=== PATIENT | female | born 1960 | race Two or more races ===

== ENCOUNTER 2019-07-23 17:04 | Emergency (ER) | payer OTHER ==
[~2019-07-23] VITALS: Ht 154.9 cm; Wt 72.6 kg
--- NOTE | 2019-07-23 17:36 | NUR ---
PT BIB SELF C/O SYNCOPAL EPISODE THIS AFTERNON, PT IS AAOX3, NOT IN RESPIRATORY DISTRESS, HOOKED TO MORTUARY TECHNICIAN, KEPT RESTED AND COMFORTABLE, WILL CONTINUE TO MONITOR.
--- NOTE | 2019-07-23 17:50 | NUR ---
BHUMIKA ADKINS AT BEDSIDE FOR EVAL.
--- NOTE | 2019-07-23 18:20 | NUR ---
URINE SPECIMEN COLLECTED AND SENT TO LAB.
--- NOTE | 2019-07-23 18:25 | NUR ---
IV LINE ESTABLISHED, BLOOD DRAWN AND SENT TO LAB.
[2019-07-23 18:36] LABS: BASOPHILS # (AUTO) 0.1 /CMM (0.0-0.2); BASOPHILS % (AUTO) 0.8 % (0.0-2.0); EOSINOPHILS % (AUTO) 0.4 % (0.0-6.0); HEMATOCRIT 41 % (33-45); HEMOGLOBIN 13.5 g/dL (11.5-14.8); LYMPHOCYTES # (AUTO) 3.9 /CMM (0.8-4.8); MEAN CORPUSCULAR HGB CONC 33 g/dl (31.0-36.0); MEAN CORPUSCULAR VOLUME 98 fL (82-100); MONOCYTES # (AUTO) 0.5 /CMM (0.1-1.30); MONOCYTES % (AUTO) 3.9 % (2.0-12.0); NEUTROPHILS % (AUTO) 63.9 % (43.0-81.0); PLATELET COUNT (AUTO) 256 /CMM (150-450); RED BLOOD CELL COUNT(AUTO) 4.12 MIL/uL (4.0-5.2); WHITE BLOOD COUNT (AUTO) 12.5 K/uL (4.3-11.0)
[2019-07-23 18:44] LABS: APPEARANCE,URINE Clear (CLEAR); BILIRUBIN,URINE Negative (NEGATIVE); BLOOD, URINE Negative Ery/uL (NEGATIVE); COLOR,URINE Yellow (YELLOW); KETONES,URINE Negative (NEGATIVE); LEUKOCYTE ESTERASE ,URINE Negative (NEGATIVE); NITRITE, URINE Negative (NEGATIVE); PH,URINE 5.5 (5.0-8.0); PROTEIN,URINE Negative (NEGATIVE); UGLUCOSE Negative (NEGATIVE)
[2019-07-23 18:52] LABS: CALCIUM, SERUM 9.6 mg/dL (8.5-10.1); CARBON DIOXIDE 29 mmol/L (21-32); CHLORIDE 102 mmol/L (98-107); CREATININE 0.6 mg/dL (0.6-1.3); GLUCOSE 200 mg/dL (74-106); POTASSIUM 3.3 mmol/L (3.5-5.1); SODIUM SERUM 140 mmol/L (136-145); UREA NITROGEN, BLOOD 9 mg/dL (7-18)
[2019-07-23 18:54] LABS: BACTERIA,URINE 2+ /HPF (None Seen); MUCUS,URINE Moderate /LPF (None Seen); SQUAMOUS EPITHELIAL CELL,UR Moderate /HPF (None Seen); URINE AMORPHOUS URATE Moderate /HPF (None Seen)
[2019-07-23] MEDS ORDERED: IV NS 0.9% 1,000 ML BAG IV ONE (19:00)
--- NOTE | 2019-07-23 19:13 | NUR ---
REPORT GIVEN TO ANKITA AYOUB FOR JARRED.
--- NOTE | 2019-07-23 19:33 | NUR ---
IV removed. Catheter intact and site benign. Pressure and 4x4 applied to site. No bleeding noted. Patient discharged to home in stable condition. Written and verbal after care instructions given. Patient verbalizes understanding of instruction.
[2019-07-23 20:17] VITALS: BP 139/78
== END 2019-07-23 19:38 | disposition home or self-care (01) ==
LOC: ER 17:04
DX: R55 Syncope and collapse (principal); N39.0 Urinary tract infection, site not specified; E11.65 Type 2 diabetes mellitus with hyperglycemia; E78.5 Hyperlipidemia, unspecified; I10 Essential (primary) hypertension
CPT/HCPCS: 36415; 71045; 80048; 81001; 84484; 84703; 85025; 93005; 96360; 99285; J7030; 81000-TC; 87086-TC

== ENCOUNTER 2020-05-10 00:47 | Inpatient (IN) | payer OTHER ==
[~2020-05-10] VITALS: Ht 157.5 cm; Wt 74.8 kg
--- NOTE | 2020-05-10 01:42 | NUR ---
PT AAOX4. BIBSELF C/O SOB X3 DAYS. PT PLACED IN BED 18 ON MONITOR AND PULSE OX. TEMP 100.0. PT SAT 95% ON ROOM AIR. PT PLACED IN GOWN, ON MONITOR AND PULSE OX. MD AT BEDSIDE FOR EVAL. AWAITING ORDERS.
--- NOTE | 2020-05-10 01:43 | NUR ---
CALLED LAB REGARDING COVID PCR AND INF.
[2020-05-10] MEDS ORDERED: ACETAMINOPHEN ES 500 MG TABLET ONE (01:45)
[2020-05-10] MEDS ORDERED: ACETAMINOPHEN 650 MG/SUPP.RECT RC ONE (02:00)
[2020-05-10] MEDS ORDERED: ACETAMINOPHEN ES 500 MG TABLET PO ONE (02:00)
--- NOTE | 2020-05-10 02:04 | NUR ---
CALLED LAB REGARDING ANTIGEN.
--- NOTE | 2020-05-10 02:04 | NUR ---
EMT AT BEDSIDE FOR EKG.
[2020-05-10 02:10] LABS: BASOPHILS % (AUTO) 0.3 % (0.0-2.0); EOSINOPHILS % (AUTO) 0.3 % (0.0-6.0); HEMATOCRIT 36 % (33-45); HEMOGLOBIN 12.2 g/dL (11.5-14.8); LYMPHOCYTES # (AUTO) 1.8 /CMM (0.8-4.8); LYMPHOCYTES % (AUTO) 20.7 % (20.0-44.0); MEAN CORPUSCULAR HGB CONC 34 g/dl (31.0-36.0); MEAN CORPUSCULAR VOLUME 93 fL (82-100); MONOCYTES # (AUTO) 0.8 /CMM (0.1-1.30); MONOCYTES % (AUTO) 8.7 % (2.0-12.0); NEUTROPHILS # (AUTO) 6.2 /CMM (1.8-8.9); PLATELET COUNT (AUTO) 280 /CMM (150-450); RED BLOOD CELL COUNT(AUTO) 3.89 MIL/uL (4.0-5.2); WHITE BLOOD COUNT (AUTO) 8.8 K/uL (4.3-11.0)
[2020-05-10 02:23] LABS: CALCIUM, SERUM 8.3 mg/dL (8.5-10.1); CARBON DIOXIDE 27 mmol/L (21-32); CHLORIDE 87 mmol/L (98-107); CREATININE 0.7 mg/dL (0.6-1.3); GLUCOSE 120 mg/dL (74-106); POTASSIUM 2.9 mmol/L (3.5-5.1); SODIUM SERUM 125 mmol/L (136-145); UREA NITROGEN, BLOOD 8 mg/dL (7-18)
[2020-05-10 02:28] LABS: D-DIMER 1.64 mg/L(FEU (0.17-0.50)
--- NOTE | 2020-05-10 02:28 | NUR ---
TONIID SWABBED, SENT TO LAB.
--- NOTE | 2020-05-10 02:28 | NUR ---
URINE COLLECTED, SENT TO LAB.
[2020-05-10] MEDS ORDERED: POTASSIUM CHLORIDE 20 MEQ TAB.PRT.SR PO ONE ×2 (02:30→02:41)
[2020-05-10 02:35] LABS: ALANINE AMINOTRANSFERASE 62 U/L (12-78); ALBUMIN 2.3 g/dL (3.4-5.0); ALKALINE PHOSPHATASE 94 U/L (46-116); ASPARTATE AMINOTRANSFERASE 52 U/L (15-37); B-TYPE NATRIURETIC PEPTIDE 640 PG/ML (0-125); BILIRUBIN,TOTAL 0.8 mg/dL (0.2-1.0); CREATINE KINASE, TOTAL 257 U/L (26-192); FERRITIN 346 ng/mL (8-388); TOTAL PROTEIN, SERUM 7.6 g/dL (6.4-8.2)
[2020-05-10 02:37] LABS: C-REACTIVE PROTEIN 10.6 mg/dL (0.0-0.9)
[2020-05-10 02:44] LABS: BILIRUBIN,URINE NEGATIVE (NEGATIVE); BLOOD, URINE TRACE Ery/uL (NEGATIVE); COLOR,URINE YELLOW (YELLOW); LEUKOCYTE ESTERASE ,URINE NEGATIVE (NEGATIVE); NITRITE, URINE NEGATIVE (NEGATIVE); PROTEIN,URINE NEGATIVE (NEGATIVE); UGLUCOSE NEGATIVE (NEGATIVE); UROBILINOGEN,URINE 0.2 EU/dL (0.2)
[2020-05-10 02:46] LABS: BACTERIA,URINE None seen /HPF (None Seen); RBC,URINE 0-2 /HPF (0-2); SQUAMOUS EPITHELIAL CELL,UR Few /HPF (None Seen); WBC,URINE 0-2 /HPF (0-3)
--- NOTE | 2020-05-10 02:46 | NUR ---
RADIOLOGY AT BEDSIDE FOR CXR
--- NOTE | 2020-05-10 02:50 | NUR ---
REC'D POS COVID RESULTS. AWARE
[2020-05-10] MEDS ORDERED: ONDANSETRON HCL/PF 4 MG/2 ML VIAL IVP PRN (05:00)
[2020-05-10] MEDS ORDERED: ACETAMINOPHEN 325 MG TABLET PO PRN (05:00)
[2020-05-10] MEDS ORDERED: ALBUTEROL SULFATE 8 GM HFA.AER.AD IH PRN (05:00)
[2020-05-10] MEDS ORDERED: ONDANSETRON 4 MG TAB.RAPDIS SL PRN (05:00)
[2020-05-10 05:53] LABS: BILIRUBIN,DIRECT 0.4 mg/dL (0.0-0.2)
--- NOTE | 2020-05-10 07:26 | NUR ---
REPORT GIVEN TO SAMMY LUCIANO FOR JARRED
[2020-05-10] MEDS ORDERED: ATOR40TA PO (07:49)
[2020-05-10] MEDS ORDERED: METF-442 PO (07:49)
[2020-05-10] MEDS ORDERED: ATEN100T PO (07:49)
[2020-05-10] MEDS ORDERED: HYDR25TA4 PO (07:49)
[2020-05-10] MEDS ORDERED: INSU100I26 PO (07:49)
[2020-05-10] MEDS ORDERED: BENA40TA8 PO (07:49)
[2020-05-10] MEDS ORDERED: INSU100V SQ (07:49)
[2020-05-10] MEDS ORDERED: INSU100V27 SQ (07:49)
[2020-05-10] MEDS ORDERED: ASPI-1420 PO (07:49)
[2020-05-10] MEDS ORDERED: Sodium Phosphate 30 MMOL in IV NS 0.9% 250 ML IV SCH (08:00)
[2020-05-10] MEDS: DEXAMETHASONE SOD PHOSPHATE 10 MG/ML VIAL IJ SCH (09:01)
[2020-05-10] MEDS: AZITHROMYCIN 250 MG TABLET PO SCH (09:01)
[2020-05-10] MEDS: ENOXAPARIN SODIUM 40 MG/0.4 ML DISP.SYRIN SQ SCH (09:18)
--- NOTE | 2020-05-10 09:22 | NUR ---
PATIENT IN BED ASLEEP, EASILY AROUSABLE BY VOICE. HOOKED TO MONITOR. VSS
--- NOTE | 2020-05-10 09:42 | NUR ---
BS 65MG/DL. MD AWARE
[2020-05-10] MEDS: ASPIRIN EC 81 MG TABLET.DR PO SCH (10:00)
[2020-05-10] MEDS: ATENOLOL 50 MG TABLET PO SCH (10:16)
[2020-05-10] MEDS: BENAZEPRIL HCL 20 MG TABLET PO SCH (10:17)
[2020-05-10] MEDS ORDERED: DEXTROSE 50%-WATER 50 ML DISP.SYRIN IV PRN (10:30)
[2020-05-10] MEDS: METFORMIN 500 MG TABLET PO SCH ×2 (10:30→18:00)
--- NOTE | 2020-05-10 11:16 | NUR ---
PATIENT IN BED ASLEEP, EASILY AROUSABLE BY VOICE. HOOKED TO MONITOR. VSS
[2020-05-10] MEDS: BLOOD SUGAR DIAGNOSTIC 1 EACH STRIP VI SCH ×3 (12:30→21:36)
--- NOTE | 2020-05-10 13:22 | NUR ---
PATIENT IN BED ASLEEP, EASILY AROUSABLE BY VOICE. HOOKED TO MONITOR. VSS
--- NOTE | 2020-05-10 15:42 | NUR ---
PATIENT AWAKE IN BED. HOOKED TO MONITOR. VSS. KEPT ISOLATED. KEPT WARM SAFE AND COMFORTABLE
[2020-05-10] MEDS ORDERED: INSULIN LISPRO SQ SCH (17:00)
--- NOTE | 2020-05-10 17:18 | NUR ---
room 209-1
[2020-05-10] MEDS: INSULIN LISPRO/ASPART 100 UNIT/ML CARTRIDGE SQ SCH (17:30)
[2020-05-10] MEDS: INSULIN REGULAR, HUMAN 100 UNIT/ML 3 ML VIAL SQ PRN (17:30)
--- NOTE | 2020-05-10 18:22 | NUR ---
PATIENT AWAKE IN BED. HOOKED TO MONITOR. VSS. KEPT ISOLATED. KEPT WARM SAFE AND COMFORTABLE
--- NOTE | 2020-05-10 18:54 | NUR ---
PER CHARGE NURSE, VALUE ENGINEER WILL TAKE PATIENT.
--- NOTE | 2020-05-10 19:32 | NUR ---
REPORT GIVEN TO PHILIP LUCIANO FOR JARRED
--- NOTE | 2020-05-10 19:33 | NUR ---
CHAIR AND COUCH MAKER NOTES RECEIVED REPORT FROM ANKITA LATHAM; AWAITING FOR PATIENT TO ARRIVE TO UNIT
--- NOTE | 2020-05-10 19:57 | NUR ---
TAKEN UP TO ASSIGNED ROOM FOR JARRED.
[2020-05-10 20:00] VITALS: BP 113/76
--- NOTE | 2020-05-10 20:00 | NUR ---
SMALL CRAFT OPERATOR NOTES PATIENT ARRIVED TO UNIT VIA GURNEY, ACCOMPANIED BY 2 ER STAFF; PATIENT A/OX4, WOLOF SPEAKING; TELE MONITOR ATTACHED, READS SINUS RHYTHM; ISOLATION PRECAUTIONS IMPLEMENTED; PATIENT ABLE TO MAKE NEEDS KNOWN; BREATHING EVENLY AND UNLABORED; NO SOB NOTED; TOLERATING ROOM AIR WELL; NO APPARENT DISTRESS NOTED AT THIS TIME; PATIENT DENIES PAIN; PATIENT HAS LIMITED RUSSIAN, OKAY TO CALL FAMILY; L AC # 20, INTACT AND PATENT; BELONGINGS CHECKED; PATIENT ORIENTED TO UNIT AND STAFF; PATIENT VERBALIZED UNDERSTANDING; SAFETY PRECAUTIONS IMPLEMENTED; BED LOCKED IN LOW POSITION; SIDE RAILSX2; CALL LIGHT WITHIN REACH; WILL CON PLAN OF CARE
--- NOTE | 2020-05-10 20:09 | NUR ---
PT TRANSFERED PER [employer]S PROTOCOL
[2020-05-10] MEDS: *INSULIN REGULAR(HUMULIN R)HUM 100 UNIT/ML VIAL SQ PRN (21:37)
[2020-05-10] MEDS: INSULIN GLARGINE, 100 UNIT/ML CARTRIDGE SQ SCH (21:37)
--- NOTE | 2020-05-10 21:42 | NUR ---
MEDICAL RECORD LIBRARIAN NOTES PER PATIENT, SHE WOULD LIKE TO RECEIVE JUST THE 4 UNITS OF INSULIN COVERAGE AND DOES NOT WANT 38UNITS OF LANTUS TO BE ADMINISTERED; PATIENT REPORTED SHE DOES NOT WANT LOW BLOOD SUGAR AND IS ANXIOUS SINCE PATIENT DOES NOT HAVE MUCH APPETITE RECENTLY; RISKS/BENEFITS REVIEWED WITH PATIENT; PATIENT STILL REFUSED, WILL CONT PLAN OF CARE
[2020-05-11] VITALS: BP 126/70
--- NOTE | 2020-05-11 03:38 | NUR ---
NUT PROCESSING SUPERVISOR NOTES PATIENT REPORTED SHE FEELS LIKE SHE IS HAVING TROUBLE BREATHING; PATIENT PLACED ON O2 FOR NOW, PATIENT SATTING 94%, PATIENT FEELS MORE COMFORTABLY SLEEPING WITH O2 ON, WILL CONT PLAN OF CARE
[2020-05-11 04:00] VITALS: BP_SYST 118; BP_SYST 157; BP_DIAS 68; BP_DIAS 82
[2020-05-11] MEDS ORDERED: AZITHROMYCIN 250 MG TABLET PO SCH (05:00)
[2020-05-11] MEDS: BLOOD SUGAR DIAGNOSTIC 1 EACH STRIP VI SCH ×4 (06:51→21:00)
[2020-05-11] MEDS: INSULIN REGULAR, HUMAN 100 UNIT/ML 3 ML VIAL SQ PRN (06:54)
--- NOTE | 2020-05-11 07:04 | NUR ---
MILL TENDER WARM UP CLOSING NOTES PATIENT RESTING IN BED COMFORTABLY; A/OX4, BULGARIAN SPEAKING; PATIENT ON 2LPM VIA NC WELL, SATTING 94%; TELE MONITOR READS SINUS RHYTHM 60S; L AC #20, INTACT AND PATENT; ABLE TO MAKE NEEDS KNOWN; ISOLATION PRECAUTIONS MAINTAINED; SAFETY PRECAUTIONS IMPLEMENTED; WILL ENDORSE JARRED TO ONCOMING SHIFT
[2020-05-11] MEDS: INSULIN LISPRO/ASPART 100 UNIT/ML CARTRIDGE SQ SCH ×2 (07:30→17:16)
[2020-05-11 08:00] VITALS: BP 119/72
--- NOTE | 2020-05-11 08:00 | NUR ---
Spoke with [employer] who said NovoLog is not valuable. patient takes metformin this morning.
--- NOTE | 2020-05-11 08:00 | NUR ---
RN Opening note Received patient in bed AO x 4 able to responds all stimuli, does no c/o pain or discomfort. Skin is warm to touch keep clean/dry, intact IV sit. Respiratory even and unlabored with oxygen at 2LPM via n/c, no sob or distress observed. Kept bed locked with elevated HOB for ensure airway and aspiration precaution also lowest bed position for safety. Call light within reach will continue to monitor.
[2020-05-11 08:23] LABS: EOSINOPHILS % (AUTO) 0.1 % (0.0-6.0); HEMATOCRIT 34 % (33-45); HEMOGLOBIN 11.6 g/dL (11.5-14.8); LYMPHOCYTES # (AUTO) 1.6 /CMM (0.8-4.8); MEAN CORPUSCULAR HGB CONC 34 g/dl (31.0-36.0); MEAN CORPUSCULAR VOLUME 94 fL (82-100); MONOCYTES # (AUTO) 0.7 /CMM (0.1-1.30); MONOCYTES % (AUTO) 8.5 % (2.0-12.0); NEUTROPHILS # (AUTO) 6.3 /CMM (1.8-8.9); NEUTROPHILS % (AUTO) 72.4 % (43.0-81.0); PLATELET COUNT (AUTO) 317 /CMM (150-450); RED BLOOD CELL COUNT(AUTO) 3.64 MIL/uL (4.0-5.2); WHITE BLOOD COUNT (AUTO) 8.7 K/uL (4.3-11.0)
[2020-05-11 08:41] LABS: BILIRUBIN,TOTAL 0.6 mg/dL (0.2-1.0); CALCIUM, SERUM 8.3 mg/dL (8.5-10.1); CREATININE 0.6 mg/dL (0.6-1.3); MAGNESIUM 1.4 mg/dL (1.8-2.4); PHOSPHORUS 3.2 mg/dL (2.5-4.9); POTASSIUM 3.2 mmol/L (3.5-5.1); TOTAL PROTEIN, SERUM 7.1 g/dL (6.4-8.2)
[2020-05-11 08:47] LABS: THYROID STIMULATING HORMONE 0.508 uIU/mL (0.358-3.74)
[2020-05-11] MEDS: ATENOLOL 50 MG TABLET PO SCH (09:00)
[2020-05-11] MEDS: ASPIRIN EC 81 MG TABLET.DR PO SCH (09:46)
[2020-05-11] MEDS: AZITHROMYCIN 250 MG TABLET PO SCH (09:46)
[2020-05-11] MEDS: METFORMIN 500 MG TABLET PO SCH ×2 (09:47→17:14)
[2020-05-11] MEDS: ATORVASTATIN 40 MG TABLET PO SCH (09:47)
[2020-05-11] MEDS: BENAZEPRIL HCL 20 MG TABLET PO SCH (09:47)
[2020-05-11] MEDS: DEXAMETHASONE SOD PHOSPHATE 10 MG/ML VIAL IJ SCH (09:49)
[2020-05-11] MEDS: ENOXAPARIN SODIUM 40 MG/0.4 ML DISP.SYRIN SQ SCH (10:02)
[2020-05-11] MEDS ORDERED: POTASSIUM CHLORIDE 20 MEQ TAB.PRT.SR PO SCH (11:30)
[2020-05-11] MEDS: Magnesium 1GM/D5W 100ML PREMIX 100 ML IV SCH ×4 (12:17→15:59)
[2020-05-11] MEDS: *INSULIN REGULAR(HUMULIN R)HUM 100 UNIT/ML VIAL SQ PRN ×2 (12:20→21:04)
[2020-05-11 12:44] LABS: URIC ACID 2.8 mg/dL (2.6-7.2)
[2020-05-11 12:48] LABS: C-REACTIVE PROTEIN 13.9 mg/dL (0.0-0.9)
--- NOTE | 2020-05-11 18:00 | NUR ---
RN Closing note Patient in bed finished dinner, does no appears pain or distress. Skin is warm to touch intact IV site, no fever observed during day shift. Respiratory even and unlabored with oxygen/room air. Kept locked bed with elevated HOB for ensure airway and aspiration precaution also lowest position for safety, call light within reach, will endorse manager shift.
[2020-05-11] MEDS: CEFTRIAXONE 1 G in IV D5W 50 ML IV SCH (20:23)
[2020-05-11] MEDS: INSULIN GLARGINE, 100 UNIT/ML CARTRIDGE SQ SCH (21:05)
--- NOTE | 2020-05-11 21:11 | NUR ---
madiha insulin missing in tray spoke with patient states, "thats ok i continue my pen when i go home." bs 219 administered 4 units of regular insulin and gave snack.
--- NOTE | 2020-05-11 22:31 | NUR ---
NOTIFIED OF COVID RESULTS, PT IS POSITIVE FOR COVID. NOTIFIED PRIMARY RN MARBELLA
[2020-05-12] VITALS: BP 114/69
[2020-05-12 04:00] VITALS: BP 115/70
[2020-05-12] MEDS: INSULIN LISPRO/ASPART 100 UNIT/ML CARTRIDGE SQ SCH ×2 (07:19→17:35)
[2020-05-12] MEDS: *INSULIN REGULAR(HUMULIN R)HUM 100 UNIT/ML VIAL SQ PRN (07:20)
[2020-05-12] MEDS: BLOOD SUGAR DIAGNOSTIC 1 EACH STRIP VI SCH ×3 (07:20→17:35)
--- NOTE | 2020-05-12 07:20 | NUR ---
ms rn received on bed, awake,alert,oriented x4,on o2 2 liters, w/ adequate saturation, denies pain at this time,will monitor patient.
[2020-05-12 07:48] LABS: BASOPHILS % (AUTO) 0.3 % (0.0-2.0); EOSINOPHILS % (AUTO) 0.6 % (0.0-6.0); HEMATOCRIT 34 % (33-45); HEMOGLOBIN 11.4 g/dL (11.5-14.8); LYMPHOCYTES # (AUTO) 1.9 /CMM (0.8-4.8); MEAN CORPUSCULAR HGB CONC 33 g/dl (31.0-36.0); MEAN CORPUSCULAR VOLUME 95 fL (82-100); MONOCYTES # (AUTO) 0.6 /CMM (0.1-1.30); MONOCYTES % (AUTO) 6.4 % (2.0-12.0); NEUTROPHILS # (AUTO) 7.5 /CMM (1.8-8.9); NEUTROPHILS % (AUTO) 73.7 % (43.0-81.0); PLATELET COUNT (AUTO) 376 /CMM (150-450); RED BLOOD CELL COUNT(AUTO) 3.61 MIL/uL (4.0-5.2); WHITE BLOOD COUNT (AUTO) 10.1 K/uL (4.3-11.0)
[2020-05-12 07:57] LABS: CALCIUM, SERUM 8.5 mg/dL (8.5-10.1); CREATININE 0.6 mg/dL (0.6-1.3)
[2020-05-12 08:00] VITALS: BP 136/71
[2020-05-12] MEDS: ATENOLOL 50 MG TABLET PO SCH (09:00)
--- NOTE | 2020-05-12 09:20 | NUR ---
ms vinicio claros served,due meds given, tolerated well.
[2020-05-12] MEDS: DEXAMETHASONE SOD PHOSPHATE 10 MG/ML VIAL IJ SCH (10:27)
[2020-05-12] MEDS: ATORVASTATIN 40 MG TABLET PO SCH (10:27)
[2020-05-12] MEDS: METFORMIN 500 MG TABLET PO SCH ×2 (10:28→17:35)
[2020-05-12] MEDS: ASPIRIN EC 81 MG TABLET.DR PO SCH (10:28)
[2020-05-12] MEDS: BENAZEPRIL HCL 20 MG TABLET PO SCH (10:28)
[2020-05-12] MEDS: ENOXAPARIN SODIUM 40 MG/0.4 ML DISP.SYRIN SQ SCH (10:29)
--- NOTE | 2020-05-12 11:00 | NUR ---
ms rn was seen by dr. bolivar falcon/ orders made and carried out.
--- NOTE | 2020-05-12 11:00 | NUR ---
ms rn patient's saturation is below 88% ,room air at resrt
--- NOTE | 2020-05-12 11:00 | NUR ---
ms rn tried to tartrate patient from o2, still desaturating below 88% on room air,md aware.
[2020-05-12] MEDS: INSULIN REGULAR, HUMAN 100 UNIT/ML 3 ML VIAL SQ PRN (13:03)
[2020-05-12] MEDS ORDERED: METH4TAB3 PO (13:10)
[2020-05-12] MEDS ORDERED: AZIT250T13 PO (13:10)
[2020-05-12 16:00] VITALS: BP 133/71
--- NOTE | 2020-05-12 18:53 | NUR ---
ms rn ready to be discharge if o2 already delivered at home.
[2020-05-12 20:00] VITALS: BP_SYST 130; BP_SYST 134; BP_DIAS 65; BP_DIAS 69
--- NOTE | 2020-05-12 20:00 | NUR ---
received pt in the bed in stable condition.
[2020-05-12] MEDS: CEFTRIAXONE 1 G in IV D5W 50 ML IV SCH (20:39)
--- NOTE | 2020-05-12 20:50 | NUR ---
recephin not given because pt discharged home.
--- NOTE | 2020-05-12 21:12 | NUR ---
pt discharged home at 2051. iv removed no sign of bleeding. pt accompanied outside of the building via wheelchair.
== END 2020-05-12 21:00 | disposition home or self-care (01) | DRG 137 ==
LOC: ER 00:50 → OBSVTOIN 05:35 → OBSER 05:35 → TRANSITION 07:19 → TELE-TD 17:47 → TELE2 18:41
PROVIDERS: ADMIT Internal Medicine; ATTEND Internal Medicine
DX: U07.1 COVID-19 (principal); J96.01 Acute respiratory failure with hypoxia; I10 Essential (primary) hypertension; J12.89 Other viral pneumonia; E66.01 Morbid (severe) obesity due to excess calories; E43 Unspecified severe protein-calorie malnutrition; E11.9 Type 2 diabetes mellitus without complications; E87.6 Hypokalemia; E78.5 Hyperlipidemia, unspecified; E86.1 Hypovolemia; E87.2 Acidosis; Z79.4 Long term (current) use of insulin; E88.09 Other disorders of plasma-protein metabolism, not elsewhere classified; Z68.30 Body mass index [BMI] 30.0-30.9, adult; E22.2 Syndrome of inappropriate secretion of antidiuretic hormone
CPT/HCPCS: 36415; 71045-TC; 80048-TC; 80053-TC; 80061-TC; 81001; 82248-TC; 82550-TC; 82553; 82728-TC; 82962-TC; 83605-TC; 83615-TC; 83735-TC; 83880; 84100-TC; 84443-TC; 84484-TC; 84550-TC; 85025-TC; 85378-TC; 85385-TC; 85730-TC; 86140-TC; 87040-TC; 87081-TC; 87086-TC; A9563; C9803; G0378; J0696; J1100; J1650; J1815; J2405; J3475; J7050; J7060; Q0162; U0003

== ENCOUNTER 2020-05-17 22:12 | Inpatient (IN) | payer OTHER ==
[~2020-05-17] VITALS: Ht 157.5 cm; Wt 74.8 kg
[~2020-05-17 22:12] MED LIST: ASPI-1420 PO; ATEN100T PO; ATOR40TA PO; AZIT250T13 PO; BENA40TA8 PO; HYDR25TA4 PO; INSU100I26 PO; INSU100V SQ; INSU100V27 SQ; METF-442 PO; METH4TAB3 PO
--- NOTE | 2020-05-17 22:47 | NUR ---
PT BIBFAMILY C/O SOB. RECENTLY TEST POS COVID 05/10/20. MD AT BEDSIDE FOR EVAL. AWAITING ORDERS. NO ACUTE DISTRESS NOTED. PER FAMILY PT ON 2L NC AT HOME.
--- NOTE | 2020-05-17 22:49 | NUR ---
LINE ESTABLISHED RAC 20G, BLOOD WORK SENT TO LAB.
[2020-05-17 23:08] LABS: BASOPHILS # (AUTO) 0.3 /CMM (0.0-0.2); BASOPHILS % (AUTO) 2.4 % (0.0-2.0); EOSINOPHILS % (AUTO) 0.1 % (0.0-6.0); HEMATOCRIT 36 % (33-45); HEMOGLOBIN 12.1 g/dL (11.5-14.8); LYMPHOCYTES # (AUTO) 1.8 /CMM (0.8-4.8); LYMPHOCYTES % (AUTO) 17.1 % (20.0-44.0); MEAN CORPUSCULAR HGB CONC 34 g/dl (31.0-36.0); MEAN CORPUSCULAR VOLUME 94 fL (82-100); MONOCYTES # (AUTO) 0.6 /CMM (0.1-1.30); MONOCYTES % (AUTO) 5.2 % (2.0-12.0); NEUTROPHILS # (AUTO) 8.1 /CMM (1.8-8.9); NEUTROPHILS % (AUTO) 75.2 % (43.0-81.0); PLATELET COUNT (AUTO) 452 /CMM (150-450); RED BLOOD CELL COUNT(AUTO) 3.78 MIL/uL (4.0-5.2); WHITE BLOOD COUNT (AUTO) 10.8 K/uL (4.3-11.0)
--- NOTE | 2020-05-17 23:08 | NUR ---
RADIOLOGY AT BEDSIDE
[2020-05-17] MEDS ORDERED: IV NS 0.9% 1,000 ML BAG IV ONE (23:30)
[2020-05-17 23:34] LABS: ALANINE AMINOTRANSFERASE 152 U/L (12-78); ALBUMIN 2.5 g/dL (3.4-5.0); ALKALINE PHOSPHATASE 113 U/L (46-116); ASPARTATE AMINOTRANSFERASE 80 U/L (15-37); B-TYPE NATRIURETIC PEPTIDE 426 PG/ML (0-125); BILIRUBIN,TOTAL 0.4 mg/dL (0.2-1.0); CARBON DIOXIDE 22 mmol/L (21-32); CHLORIDE 82 mmol/L (98-107); CREATININE 0.6 mg/dL (0.6-1.3); GLUCOSE 147 mg/dL (74-106); POTASSIUM 4.3 mmol/L (3.5-5.1); TOTAL PROTEIN, SERUM 7.5 g/dL (6.4-8.2); UREA NITROGEN, BLOOD 7 mg/dL (7-18)
[2020-05-17 23:38] LABS: SODIUM SERUM 114 mmol/L (136-145)
--- NOTE | 2020-05-17 23:48 | NUR ---
[phone] [place] [id number] [phone] [place]
--- NOTE | 2020-05-17 23:58 | NUR ---
CALLED FOR PCR
[2020-05-17] MEDS ORDERED: PIPERACILLIN /TAZOBACTAM 3.375 G VIAL IV ONE (23:59)
[2020-05-18] MEDS ORDERED: PIPERACILLIN /TAZOBACTAM 3.375 G in IV D5W 50 ML IV ONE ×2
[2020-05-18] MEDS ORDERED: IV NS 0.9% 1,000 ML BAG IV ONE
--- NOTE | 2020-05-18 00:10 | NUR ---
COVID PCR SWABBED, SENT TO LAB.
--- NOTE | 2020-05-18 01:29 | NUR ---
DR. BARRIOS PAGED PER ER ORDER.
--- NOTE | 2020-05-18 01:32 | NUR ---
PT NOTED SINUS VAISHNAVI AT 48. PT ASSESSED, DID NOT HAVE ANY COMPLAINTS (DENIES CP/SOB). MD AWARE. WILL CONTINUE TO MONITOR.
[2020-05-18 02:10] LABS: BILIRUBIN,DIRECT 0.2 mg/dL (0.0-0.2)
[2020-05-18] MEDS ORDERED: MAG HYDROX/AL HYDROX/SIMETH 30 ML UDC PO PRN (02:30)
[2020-05-18] MEDS ORDERED: ZOLPIDEM TARTRATE 5 MG TABLET PO PRN (02:30)
[2020-05-18] MEDS ORDERED: HYDROCODONE/APAP 5/325MG TABLET PO PRN (02:30)
[2020-05-18] MEDS ORDERED: ONDANSETRON HCL/PF 4 MG/2 ML VIAL IVP PRN (02:30)
[2020-05-18] MEDS ORDERED: ACETAMINOPHEN 325 MG TABLET PO PRN (02:30)
[2020-05-18] MEDS ORDERED: ENOXAPARIN SODIUM 40 MG/0.4 ML DISP.SYRIN SQ SCH (02:30)
[2020-05-18] MEDS ORDERED: Z GUARD REMEDY 2 OZ OINT TP PRN (02:30)
[2020-05-18] MEDS ORDERED: IV NS 0.9% 1,000 ML IV PRN (02:30)
[2020-05-18] MEDS ORDERED: *INSULIN REGULAR(HUMULIN R)HUM 100 UNIT/ML VIAL SQ PRN (02:30)
[2020-05-18] MEDS ORDERED: DEXTROSE 50%-WATER 50 ML DISP.SYRIN IV PRN (02:30)
[2020-05-18] MEDS ORDERED: MAGNESIUM HYDROXIDE 30 ML UDC PO PRN (02:30)
[2020-05-18] MEDS ORDERED: ENOXAPARIN SODIUM 60 MG/0.6 ML DISP.SYRIN SQ ONE (02:31)
[2020-05-18 03:00] LABS: C-REACTIVE PROTEIN 0.9 mg/dL (0.0-0.9)
[2020-05-18] MEDS ORDERED: VANCOMYCIN 1.5 GM in IV D5W 500ml IV ONE (03:00)
[2020-05-18] MEDS ORDERED: VANCOMYCIN 1 GM VIAL ONE ×2 (03:56→03:59)
--- NOTE | 2020-05-18 03:56 | NUR ---
PT AWAKE IN BED, RESTING COMFORTABLY. VSS. PROVIDED WITH MORE BLANKETS. CALL LIGHT AT BEDSIDE.
--- NOTE | 2020-05-18 05:40 | NUR ---
PT AMBULATED TO THE RESTROOM WITH STEADY GAIT. VSS.
[2020-05-18] MEDS ORDERED: PIPERACILLIN /TAZOBACTAM 4.5 G in IV D5W 50 ML IV ONE (06:00)
--- NOTE | 2020-05-18 07:16 | NUR ---
REPORT GIVEN TO CHRISTIE LUCIANO FOR JARRED
[2020-05-18] MEDS: PANTOPRAZOLE 40 MG TABLET.DR PO SCH (08:00)
--- NOTE | 2020-05-18 08:12 | NUR ---
PATIENT IN BED, ASLEEP. EASILY AROUSABLE BY VOICE. HOOKED TO MONITOR. WILL CONTINUE TO MONITOR ACCORDINGLY
--- NOTE | 2020-05-18 08:52 | NUR ---
BREAKFAST TRAY PROVIDED. TOLERATED PO WELL
[2020-05-18] MEDS: METFORMIN 500 MG TABLET PO SCH ×2 (08:57→18:35)
[2020-05-18] MEDS: BLOOD SUGAR DIAGNOSTIC 1 EACH STRIP VI SCH ×4 (08:58→22:00)
[2020-05-18] MEDS: ATORVASTATIN 40 MG TABLET PO SCH ×2 (09:00→09:56)
[2020-05-18] MEDS: ASPIRIN EC 81 MG TABLET.DR PO SCH (09:36)
[2020-05-18] MEDS: DEXAMETHASONE SOD PHOSPHATE 10 MG/ML VIAL IV SCH (09:36)
--- NOTE | 2020-05-18 09:38 | NUR ---
Note estefanía in EDM - 05/20/20 at 0930 by MELI ATORVASTATIN ON HOLD. BP 118/57, HR 50BPM.
--- NOTE | 2020-05-18 11:16 | NUR ---
PATIENT IN BED AWAKE. WATCHING TELEVISION. VSS.
[2020-05-18] MEDS: PIPERACILLIN /TAZOBACTAM 3.375 G in IV D5W 50 ML IV SCH ×2 (12:16→18:35)
--- NOTE | 2020-05-18 12:42 | NUR ---
LUNCH TRAY PROVIDED. TOLERATED PO WELL
--- NOTE | 2020-05-18 15:06 | NUR ---
PATIENT IN BED AWAKE. HOOKED TO MONITOR, VSS.
--- NOTE | 2020-05-18 16:03 | NUR ---
DINNER TRAY PROVIDED. TOLERATED PO WELL
[2020-05-18] MEDS: VANCOMYCIN 1 GM in IV D5W 250ml IV SCH (16:22)
[2020-05-18 17:23] LABS: CALCIUM, SERUM 8.7 mg/dL (8.5-10.1); CREATININE 1.2 mg/dL (0.6-1.3); MAGNESIUM 2.2 mg/dL (1.8-2.4); PHOSPHORUS 2.7 mg/dL (2.5-4.9)
--- NOTE | 2020-05-18 19:30 | NUR ---
ENDORSEMENT GIVEN TO YEISON LUCIANO FOR JARRED
[2020-05-18] MEDS: IV NS 0.9% 1,000 ML IV PRN (20:45)
--- NOTE | 2020-05-18 21:49 | NUR ---
PT REPOSITIONED IN BED, PROVIDED WITH EXTRA BLANKETS AND A PILLOW. VSS. AWARE OF PLAN OF CARE. WILL CONTINUE TO MONITOR.
[2020-05-18] MEDS: INSULIN GLARGINE, 100 UNIT/ML CARTRIDGE SQ SCH (22:10)
[2020-05-18 23:30] LABS: THYROID STIMULATING HORMONE 0.661 uIU/mL (0.358-3.74); URIC ACID 11.7 mg/dL (2.6-7.2)
[2020-05-19] MEDS: PIPERACILLIN /TAZOBACTAM 3.375 G in IV D5W 50 ML IV SCH ×4 (00:15→17:56)
--- NOTE | 2020-05-19 00:19 | NUR ---
PT REMAINS AWAKE, PROVIDED WITH MORE BLANKETS. VSS. REPOSITIONED TO THE RIGHT.
--- NOTE | 2020-05-19 01:30 | NUR ---
PT REQUESTED FOR WATER. WATER AND CRACKERS PROVIDED. PT IS WAKE, WATCHING TV. REPOSITIONED TO THE LEFT.
[2020-05-19] MEDS: VANCOMYCIN 1 GM in IV D5W 250ml IV SCH ×2 (04:05→16:40)
[2020-05-19 04:35] LABS: BASOPHILS % (AUTO) 0.5 % (0.0-2.0); EOSINOPHILS % (AUTO) 0.1 % (0.0-6.0); HEMATOCRIT 34 % (33-45); HEMOGLOBIN 11.5 g/dL (11.5-14.8); LYMPHOCYTES # (AUTO) 2.4 /CMM (0.8-4.8); LYMPHOCYTES % (AUTO) 23.6 % (20.0-44.0); MEAN CORPUSCULAR HGB CONC 34 g/dl (31.0-36.0); MEAN CORPUSCULAR VOLUME 96 fL (82-100); MONOCYTES # (AUTO) 0.8 /CMM (0.1-1.30); MONOCYTES % (AUTO) 8.2 % (2.0-12.0); NEUTROPHILS # (AUTO) 6.8 /CMM (1.8-8.9); NEUTROPHILS % (AUTO) 67.6 % (43.0-81.0); PLATELET COUNT (AUTO) 402 /CMM (150-450); RED BLOOD CELL COUNT(AUTO) 3.58 MIL/uL (4.0-5.2)
--- NOTE | 2020-05-19 04:45 | NUR ---
PT ASLEEP, ON MONITOR AND PULSE OX.
[2020-05-19 04:47] LABS: CALCIUM, SERUM 8.6 mg/dL (8.5-10.1); CREATININE 0.8 mg/dL (0.6-1.3); MAGNESIUM 1.4 mg/dL (1.8-2.4); PHOSPHORUS 3.5 mg/dL (2.5-4.9); POTASSIUM 4.5 mmol/L (3.5-5.1)
--- NOTE | 2020-05-19 06:41 | NUR ---
PT RESTING COMFORTABLY, REPOSITIONED, VSS.
[2020-05-19] MEDS: BLOOD SUGAR DIAGNOSTIC 1 EACH STRIP VI SCH ×4 (08:05→22:04)
[2020-05-19] MEDS: PANTOPRAZOLE 40 MG TABLET.DR PO SCH (08:30)
[2020-05-19] MEDS: METFORMIN 500 MG TABLET PO SCH ×2 (08:48→17:52)
[2020-05-19] MEDS: ASPIRIN EC 81 MG TABLET.DR PO SCH (08:48)
[2020-05-19] MEDS: ATORVASTATIN 40 MG TABLET PO SCH (08:51)
[2020-05-19] MEDS: DEXAMETHASONE SOD PHOSPHATE 10 MG/ML VIAL IV SCH (09:04)
[2020-05-19] MEDS: ENOXAPARIN SODIUM 40 MG/0.4 ML DISP.SYRIN SQ SCH (09:05)
--- NOTE | 2020-05-19 09:24 | NUR ---
PATIENT ASLEEP, BUT EASILY AROUSABLE, BREATHING EVEN AND UNLABORED. NO DISTRESS NOTED.
[2020-05-19] MEDS: Magnesium 1GM/D5W 100ML PREMIX 100 ML IV SCH ×4 (10:30→14:10)
--- NOTE | 2020-05-19 10:51 | NUR ---
Minh josé in ED - 05/19/20 at 1052 by JALEESA REPORT GIVEN TO RINA LUCIANO FOR JARRED.
[2020-05-19] MEDS ORDERED: HYDROCODONE/APAP 5/325MG TABLET ONE (12:17)
[2020-05-19] MEDS: INSULIN REGULAR, HUMAN 100 UNIT/ML 3 ML VIAL SQ PRN ×2 (12:28→18:00)
--- NOTE | 2020-05-19 18:44 | NUR ---
PATIENT ATE DINNER. BREATHING EVEN AND UNLABORED NO SOB NOTED. NEEDS ATTENDED.
--- NOTE | 2020-05-19 19:46 | NUR ---
TOOK OVER PT CARE. PT REMAINS IN BED, RESTING COMFORTABLY. PT WAS REPOSITIONED, PLACED ON MONITOR AND PULSE OX. VSS. PROVIDED WITH BLANKTES, CALL LIGHT AT BEDSIDE.
[2020-05-19] MEDS: IV NS 0.9% 1,000 ML IV PRN (21:45)
[2020-05-19] MEDS: INSULIN GLARGINE, 100 UNIT/ML CARTRIDGE SQ SCH (22:31)
[2020-05-20] MEDS: PIPERACILLIN /TAZOBACTAM 3.375 G in IV D5W 50 ML IV SCH ×4 (00:10→18:03)
--- NOTE | 2020-05-20 01:41 | NUR ---
PT AMBULATED TO THE RESTROOM, VSS.
[2020-05-20] MEDS ORDERED: ACETAMINOPHEN 325 MG TABLET ONE (01:49)
[2020-05-20] MEDS: VANCOMYCIN 1 GM in IV D5W 250ml IV SCH (04:00)
[2020-05-20 05:23] LABS: CALCIUM, SERUM 8.8 mg/dL (8.5-10.1); CREATININE 0.7 mg/dL (0.6-1.3); POTASSIUM 5.1 mmol/L (3.5-5.1)
--- NOTE | 2020-05-20 06:59 | NUR ---
PT RESTING COMFORTABLY, VSS. AWAKE IN BED, CALL LIGHT AT BEDSIDE.
[2020-05-20] MEDS: PANTOPRAZOLE 40 MG TABLET.DR PO SCH (07:59)
[2020-05-20] MEDS: BLOOD SUGAR DIAGNOSTIC 1 EACH STRIP VI SCH ×4 (08:36→22:12)
--- NOTE | 2020-05-20 08:39 | NUR ---
BG 48MG/DL. MADE MD AWARE. WILL SERVE PATIENT HER BREAKFAST.
[2020-05-20] MEDS: METFORMIN 500 MG TABLET PO SCH ×2 (08:47→18:24)
[2020-05-20] MEDS: DEXAMETHASONE SOD PHOSPHATE 10 MG/ML VIAL IV SCH (09:21)
[2020-05-20] MEDS: ATORVASTATIN 40 MG TABLET PO SCH (09:21)
[2020-05-20] MEDS: ASPIRIN EC 81 MG TABLET.DR PO SCH (09:21)
[2020-05-20] MEDS: ENOXAPARIN SODIUM 40 MG/0.4 ML DISP.SYRIN SQ SCH (09:22)
--- NOTE | 2020-05-20 10:45 | NUR ---
Minh josé in [facility] - 05/20/[address] DILLON AT BEDSIDE
[2020-05-20] MEDS: INSULIN REGULAR, HUMAN 100 UNIT/ML 3 ML VIAL SQ PRN ×2 (12:44→17:45)
--- NOTE | 2020-05-20 12:58 | NUR ---
PATIENT PROVIDED W LUNCH TRAY. TOLERATING PO WELL.
[2020-05-20] MEDS: IV NS 0.9% 1,000 ML IV PRN (18:00)
[2020-05-20] MEDS ORDERED: DEXA6TAB6 PO (18:18)
--- NOTE | 2020-05-20 18:24 | NUR ---
CALL FROM ANETTE BURTON, DISCHARGING PATIENT BRAD
--- NOTE | 2020-05-20 19:05 | NUR ---
PATIENT IN BED AWAKE. HOOKED TO MONITOR. VSS. WILL CONTINUE TO MONITOR ACCORDINGLY
--- NOTE | 2020-05-20 19:41 | NUR ---
REPORT GIVEN TO YEISON LUCIANO FOR JARRED
--- NOTE | 2020-05-20 19:48 | NUR ---
TOOK OVER PT CARE. PT AAOX4, REMAINS ON CERTIFIED SURGICAL TECHNICIAN, AND PULSE OX. PT RESTING COMFORTABLY. PT AWARE OF BEING DISCHARGED TONIGHT, AWAITING ORDERS.
[2020-05-20] MEDS: INSULIN GLARGINE, 100 UNIT/ML CARTRIDGE SQ SCH (22:21)
--- NOTE | 2020-05-20 22:27 | NUR ---
SPOKE TO PT REGARDING BEING DISCHARGED, PT STATED SHE WILL CONTACT HER FAMILY.
--- NOTE | 2020-05-20 23:52 | NUR ---
IV removed. Catheter intact and site benign. Pressure and 4x4 applied to site. No bleeding noted. PT discharged, vss. Ambulated with steady gait.
[2020-05-21 00:01] VITALS: BP 112/62
== END 2020-05-20 23:52 | disposition home or self-care (01) | DRG 137 ==
LOC: ER 22:13 → TRANSITION 05-18 00:54
PROVIDERS: ADMIT Internal Medicine; ATTEND Nurse Practitioner Acute Care
DX: U07.1 COVID-19 (principal); E87.1 Hypo-osmolality and hyponatremia; J12.89 Other viral pneumonia; E87.2 Acidosis; I10 Essential (primary) hypertension; E11.9 Type 2 diabetes mellitus without complications; J96.01 Acute respiratory failure with hypoxia; Z79.82 Long term (current) use of aspirin; Z79.4 Long term (current) use of insulin; E66.9 Obesity, unspecified; E78.5 Hyperlipidemia, unspecified; E86.1 Hypovolemia; R18.8 Other ascites; T50.2X5A Adverse effect of carbonic-anhydrase inhibitors, benzothiadiazides and other diuretics, initial encounter; Y92.009 Unspecified place in unspecified non-institutional (private) residence as the place of occurrence of the external cause; Z68.30 Body mass index [BMI] 30.0-30.9, adult
CPT/HCPCS: 36415; 71045-TC; 80048-TC; 80053-TC; 80202-TC; 82248-TC; 82533; 82550-TC; 82728-TC; 82962-TC; 83605-TC; 83615-TC; 83735-TC; 83880; 84100-TC; 84443-TC; 84484-TC; 84550-TC; 85025-TC; 85378-TC; 86140-TC; 87040-TC; 87081-TC; 93307-TC; A4217; G0378; J1100; J1650; J1815; J2405; J2543; J3370; J3475; J7030; J7040; J7060; U0003

== ENCOUNTER 2020-06-16 23:08 | Emergency (ER) | payer OTHER ==
[~2020-06-16] VITALS: Ht 157.5 cm; Wt 74.8 kg
[~2020-06-16 23:08] MED LIST changes: -AZIT250T13 PO; +DEXA6TAB6 PO; -HYDR25TA4 PO; -METH4TAB3 PO
[2020-06-17 00:25] VITALS: BP 184/72
--- NOTE | 2020-06-17 01:04 | NUR ---
ASSESSING THE PT
--- NOTE | 2020-06-17 01:20 | NUR ---
PT is medically stable for d/c. Patient discharged to home in stable condition. Rx and Written and verbal after care instructions given. Patient verbalizes understanding of instruction.
== END 2020-06-17 01:25 | disposition home or self-care (01) ==
LOC: ER 23:10
DX: F41.9 Anxiety disorder, unspecified (principal); I10 Essential (primary) hypertension; E11.9 Type 2 diabetes mellitus without complications; Z79.82 Long term (current) use of aspirin; Z79.4 Long term (current) use of insulin; Z79.899 Other long term (current) drug therapy

== ENCOUNTER 2020-10-06 20:37 | Emergency (ER) | payer OTHER ==
[~2020-10-06] VITALS: Ht 157.5 cm; Wt 80.3 kg
--- NOTE | 2020-10-06 20:55 | NUR ---
BIBSELF C/O DIZZY, WEAKNESS AND CHEST PAIN. PT NOTED VERY ANXIOUS. TO ER BED 4 AWAITING MD HARO
[2020-10-06] MEDS ORDERED: LORAZEPAM INJ 2 MG/ML VIAL ONE (21:07)
[2020-10-06 21:26] LABS: BASOPHILS # (AUTO) 0.1 /CMM (0.0-0.2); BASOPHILS % (AUTO) 0.5 % (0.0-2.0); EOSINOPHILS % (AUTO) 0.4 % (0.0-6.0); HEMATOCRIT 36 % (33-45); HEMOGLOBIN 11.9 g/dL (11.5-14.8); LYMPHOCYTES # (AUTO) 4.6 /CMM (0.8-4.8); LYMPHOCYTES % (AUTO) 35.8 % (20.0-44.0); MEAN CORPUSCULAR HGB CONC 33 g/dl (31.0-36.0); MEAN CORPUSCULAR VOLUME 93 fL (82-100); MONOCYTES # (AUTO) 0.7 /CMM (0.1-1.30); MONOCYTES % (AUTO) 5.3 % (2.0-12.0); NEUTROPHILS # (AUTO) 7.4 /CMM (1.8-8.9); PLATELET COUNT (AUTO) 227 /CMM (150-450); RED BLOOD CELL COUNT(AUTO) 3.87 MIL/uL (4.0-5.2); WHITE BLOOD COUNT (AUTO) 12.8 K/uL (4.3-11.0)
[2020-10-06] MEDS ORDERED: IV NS 0.9% 500 ML BAG IV ONE (21:30)
[2020-10-06] MEDS ORDERED: LORAZEPAM INJ 2 MG/ML VIAL IV ONE (21:30)
[2020-10-06 21:51] LABS: CALCIUM, SERUM 8.9 mg/dL (8.5-10.1); CARBON DIOXIDE 24 mmol/L (21-32); CHLORIDE 90 mmol/L (98-107); CREATININE 0.6 mg/dL (0.6-1.3); GLUCOSE 123 mg/dL (74-106); POTASSIUM 3.5 mmol/L (3.5-5.1); SODIUM SERUM 125 mmol/L (136-145); UREA NITROGEN, BLOOD 13 mg/dL (7-18)
[2020-10-06 21:57] LABS: ALANINE AMINOTRANSFERASE 33 U/L (12-78); ALBUMIN 3.8 g/dL (3.4-5.0); ALKALINE PHOSPHATASE 97 U/L (46-116); ASPARTATE AMINOTRANSFERASE 29 U/L (15-37); BILIRUBIN,DIRECT 0.2 mg/dL (0.0-0.2); BILIRUBIN,TOTAL 0.6 mg/dL (0.2-1.0); TOTAL PROTEIN, SERUM 8.4 g/dL (6.4-8.2)
--- NOTE | 2020-10-06 22:38 | NUR ---
PT REMAINS IN BEDM RESTING COMFORTABLY, NO COMPLAINT OF PAIN OR DISCOMFORT
[2020-10-07 00:22] VITALS: BP 161/76
--- NOTE | 2020-10-07 00:22 | NUR ---
Patient discharged to home in stable condition. Written and verbal after care instructions given. Patient verbalizes understanding of instruction.
[2020-10-08] MEDS ORDERED: LORA-259 PO (21:20)
== END 2020-10-07 00:31 | disposition home or self-care (01) ==
LOC: ER 20:40
DX: E87.1 Hypo-osmolality and hyponatremia (principal); R07.89 Other chest pain; F41.9 Anxiety disorder, unspecified; I10 Essential (primary) hypertension; E11.9 Type 2 diabetes mellitus without complications; Z79.4 Long term (current) use of insulin; Z79.82 Long term (current) use of aspirin; Z79.899 Other long term (current) drug therapy
CPT/HCPCS: 36415; 71045; 80048; 80076; 84484 ×2; 85025; 85378; 93005; 96374; 99285; J2060; J7040

== ENCOUNTER 2020-10-08 19:12 | Emergency (ER) | payer OTHER ==
[~2020-10-08] VITALS: Ht 152.4 cm; Wt 80.3 kg
[2020-10-08 20:20] LABS: BASOPHILS % (AUTO) 0.3 % (0.0-2.0); EOSINOPHILS % (AUTO) 0.5 % (0.0-6.0); HEMATOCRIT 38 % (33-45); HEMOGLOBIN 12.5 g/dL (11.5-14.8); LYMPHOCYTES # (AUTO) 4.7 /CMM (0.8-4.8); MEAN CORPUSCULAR HGB CONC 33 g/dl (31.0-36.0); MEAN CORPUSCULAR VOLUME 93 fL (82-100); MONOCYTES # (AUTO) 0.7 /CMM (0.1-1.30); NEUTROPHILS # (AUTO) 6.3 /CMM (1.8-8.9); NEUTROPHILS % (AUTO) 53.2 % (43.0-81.0); PLATELET COUNT (AUTO) 231 /CMM (150-450); RED BLOOD CELL COUNT(AUTO) 4.06 MIL/uL (4.0-5.2); WHITE BLOOD COUNT (AUTO) 11.9 K/uL (4.3-11.0)
[2020-10-08 20:31] LABS: CALCIUM, SERUM 9.4 mg/dL (8.5-10.1); CARBON DIOXIDE 22 mmol/L (21-32); CHLORIDE 90 mmol/L (98-107); CREATININE 0.6 mg/dL (0.6-1.3); GLUCOSE 187 mg/dL (74-106); POTASSIUM 3.8 mmol/L (3.5-5.1); SODIUM SERUM 124 mmol/L (136-145); UREA NITROGEN, BLOOD 11 mg/dL (7-18)
[2020-10-08 20:37] LABS: ALANINE AMINOTRANSFERASE 50 U/L (12-78); ALBUMIN 3.7 g/dL (3.4-5.0); ALKALINE PHOSPHATASE 125 U/L (46-116); ASPARTATE AMINOTRANSFERASE 51 U/L (15-37); BILIRUBIN,TOTAL 0.5 mg/dL (0.2-1.0); TOTAL PROTEIN, SERUM 8.4 g/dL (6.4-8.2)
[2020-10-08] MEDS ORDERED: IV NS 0.9% 1,000 ML BAG IV ONE (21:00)
[2020-10-08] MEDS ORDERED: LORA-259 PO (21:20)
[2020-10-08] MEDS ORDERED: LORAZEPAM 1 MG TABLET ONE (21:23)
[2020-10-08] MEDS ORDERED: LORAZEPAM 1 MG TABLET PO ONE (21:30)
[2020-10-08 21:31] VITALS: BP 139/70
== END 2020-10-08 21:31 | disposition home or self-care (01) ==
LOC: ER 19:17
DX: R00.2 Palpitations (principal); E87.1 Hypo-osmolality and hyponatremia; I10 Essential (primary) hypertension; E11.9 Type 2 diabetes mellitus without complications; F41.9 Anxiety disorder, unspecified; Z79.899 Other long term (current) drug therapy; Z79.82 Long term (current) use of aspirin; Z79.84 Long term (current) use of oral hypoglycemic drugs
CPT/HCPCS: 36415; 80053-TC; 84484-TC; 85025-TC; J7030